=== PATIENT | female | born 1995 | race Hispanic/Latino ===

== ENCOUNTER 2023-08-03 11:25 | Emergency (ER) | payer OTHER ==
[2023-08-03] MEDS ORDERED: Sodium Chloride 0.9% 10 ML Syringe FLUSH PRN (11:28)
[2023-08-03] MEDS ORDERED: Sodium Chloride 0.9% 2.5 ML Syringe FLUSH PRN (11:28)
[2023-08-03 11:48] LABS: BASOPHILS ABSOLUTE AUTO 0.02 K/uL (0.00-0.20); BASOPHILS PERCENT AUTO 0.4 % (0.0-1.0); EOSINOPHILS ABSOLUTE AUTO 0.08 K/uL (0.00-0.45); EOSINOPHILS PERCENT AUTO 1.5 % (0.0-6.0); HEMATOCRIT 37.1 % (37.0-47.0); HEMOGLOBIN 12.8 g/dL (12.0-16.0); LYMPHOCYTES ABSOLUTE AUTO 0.88 K/uL (1.00-4.80); MEAN CORPUSCULAR HEMOGLOBIN 30.2 pg (28.0-32.0); MEAN CORPUSCULAR HGB CONC 34.5 g/dL (32.0-36.0); MEAN CORPUSCULAR VOLUME 87.5 fL (83.0-99.0); MEAN PLATELET VOLUME 10.1 fL (9.4-12.3); MONOCYTES ABSOLUTE AUTO 0.26 K/uL (0.00-0.80); NEUTROPHILS ABSOLUTE AUTO 3.93 K/uL (1.80-7.70); NEUTROPHILS PERCENT AUTO 76.1 % (41.0-71.0); PLATELET COUNT,PLT 113 K/uL (150-400); RED BLOOD CELL COUNT 4.24 M/uL (4.10-5.30); WHITE BLOOD CELL COUNT,WBC 5.17 K/uL (3.9-11.3)
[2023-08-03] MEDS ORDERED: Sodium Chloride 0.9% 1,000 ML IV ONE ×2 (11:55→12:38)
[2023-08-03] MEDS ORDERED: Ibuprofen 600 MG Tab PO ONE (12:00)
[2023-08-03] MEDS ORDERED: Acetaminophen 500 MG Tab PO ONE (12:00)
[2023-08-03 12:14] LABS: ALBUMIN 3.9 g/dL (3.4-5.0); BILIRUBIN TOTAL 0.3 mg/dL (0.2-1.0); CALCIUM 8.3 mg/dL (8.5-10.1); CARBON DIOXIDE,CO2 24.2 mmol/L (21.0-32.0); CREATININE 0.6 mg/dL (0.6-1.0); EST CRCL DRUG DOSING (CG) 126.73 mL/min; POTASSIUM,K 3.6 mmol/L (3.5-5.1)
[2023-08-03 12:24] LABS: INR 1.02 (0.86-1.11)
[2023-08-03 12:51] LABS: CORONAVIRUS COVID-19 NAA NEGATIVE (NEGATIVE); INFLUENZA A NAA NEGATIVE (NEGATIVE); INFLUENZA B NAA POSITIVE (NEGATIVE); RESPIRATORY SYNCYTIAL VIR NAA NEGATIVE (NEGATIVE)
[2023-08-03] MEDS ORDERED: Iopamidol 755 MG/ML 500 ML Multipack Bottle IVPUSH ONE (17:46)
== END 2023-08-03 16:31 | disposition home or self-care (01) ==
LOC: MW.ED 11:25
DX: J11.1 Influenza due to unidentified influenza virus with other respiratory manifestations (principal); Z20.822 Contact with and (suspected) exposure to COVID-19
CPT/HCPCS: 0241U; 36415; 71045; 71275; 80053; 83690; 84484; 85025; 85379; 85610; 87651; 93005; 96360; 96361; 99285; A9270; J3490; J7030; Q9967

== ENCOUNTER 2024-02-13 07:00 | Day surgery (SDC) | payer SELFPAY ==
[2024-02-13 07:39] LABS: BASOPHILS ABSOLUTE AUTO 0.06 K/uL (0.00-0.20); BASOPHILS PERCENT AUTO 0.7 % (0.0-1.0); EOSINOPHILS ABSOLUTE AUTO 0.12 K/uL (0.00-0.45); EOSINOPHILS PERCENT AUTO 1.4 % (0.0-6.0); HEMATOCRIT 30.9 % (37.0-47.0); HEMOGLOBIN 10.7 g/dL (12.0-16.0); IMMATURE GRAN ABSOLUTE AUTO 0.03 K/uL (0.00-0.05); IMMATURE GRAN PERCENT AUTO 0.4 % (0.0-0.4); LYMPHOCYTES ABSOLUTE AUTO 1.88 K/uL (1.00-4.80); LYMPHOCYTES PERCENT AUTO 22.2 % (24.0-44.0); MEAN CORPUSCULAR HEMOGLOBIN 30.6 pg (28.0-32.0); MEAN CORPUSCULAR HGB CONC 34.6 g/dL (32.0-36.0); MEAN CORPUSCULAR VOLUME 88.3 fL (83.0-99.0); MEAN PLATELET VOLUME 9.7 fL (9.4-12.3); MONOCYTES ABSOLUTE AUTO 0.47 K/uL (0.00-0.80); MONOCYTES PERCENT AUTO 5.6 % (0.0-8.0); NEUTROPHILS PERCENT AUTO 69.7 % (41.0-71.0); PLATELET COUNT,PLT 138 K/uL (150-400); WHITE BLOOD CELL COUNT,WBC 8.46 K/uL (3.9-11.3)
[2024-02-13 07:56] LABS: INR 1.08 (0.86-1.11)
[2024-02-13 08:00] LABS: ALBUMIN 3.3 g/dL (3.4-5.0); BILIRUBIN TOTAL 0.3 mg/dL (0.2-1.0); CALCIUM 8.3 mg/dL (8.5-10.1); CARBON DIOXIDE,CO2 23.8 mmol/L (21.0-32.0); CREATININE 0.7 mg/dL (0.6-1.0); EST CRCL DRUG DOSING (CG) 103.32 mL/min; POTASSIUM,K 3.1 mmol/L (3.5-5.1); PROTEIN TOTAL,TP 6.6 g/dL (6.4-8.2)
[2024-02-13] MEDS: Sodium Chloride 0.9% 1,000 ML IV ONE (08:31)
[2024-02-13] MEDS: Sodium Chloride 0.9% 2.5 ML Syringe FLUSH PRN (08:32)
[2024-02-13] MEDS: Sodium Chloride 0.9% 1,000 ML IV SCH (08:32)
[2024-02-13] MEDS: Sodium Chloride 0.9% 10 ML Syringe FLUSH PRN (08:32)
[2024-02-13 09:16] LABS: BASOPHILS ABSOLUTE AUTO 0.04 K/uL (0.00-0.20); BASOPHILS PERCENT AUTO 0.5 % (0.0-1.0); EOSINOPHILS ABSOLUTE AUTO 0.06 K/uL (0.00-0.45); EOSINOPHILS PERCENT AUTO 0.7 % (0.0-6.0); HEMATOCRIT 22.8 % (37.0-47.0); IMMATURE GRAN ABSOLUTE AUTO 0.04 K/uL (0.00-0.05); IMMATURE GRAN PERCENT AUTO 0.5 % (0.0-0.4); LYMPHOCYTES ABSOLUTE AUTO 1.87 K/uL (1.00-4.80); LYMPHOCYTES PERCENT AUTO 21.4 % (24.0-44.0); MEAN CORPUSCULAR HEMOGLOBIN 31.1 pg (28.0-32.0); MEAN CORPUSCULAR HGB CONC 35.1 g/dL (32.0-36.0); MEAN CORPUSCULAR VOLUME 88.7 fL (83.0-99.0); MEAN PLATELET VOLUME 9.9 fL (9.4-12.3); MONOCYTES ABSOLUTE AUTO 0.44 K/uL (0.00-0.80); NEUTROPHILS ABSOLUTE AUTO 6.28 K/uL (1.80-7.70); NEUTROPHILS PERCENT AUTO 71.9 % (41.0-71.0); PLATELET COUNT,PLT 126 K/uL (150-400); RED BLOOD CELL COUNT 2.57 M/uL (4.10-5.30); WHITE BLOOD CELL COUNT,WBC 8.73 K/uL (3.9-11.3)
[2024-02-13] MEDS ORDERED: Calcium Chloride 10% 1 GM/10 ML Syringe ONE (09:56)
[2024-02-13] MEDS ORDERED: fentaNYL 250 MCG/5 ML SDV ONE (10:16)
[2024-02-13] MEDS ORDERED: Dexamethasone 4 MG/ML 5 ML MDV ONE (10:19)
[2024-02-13] MEDS ORDERED: Ondansetron 4 MG/2 ML SDV ONE (10:19)
[2024-02-13] MEDS ORDERED: Rocuronium Bromide 50 MG/5 ML Syringe ONE (10:21)
[2024-02-13] MEDS ORDERED: propofoL 50 ML ONE (10:21)
[2024-02-13] MEDS ORDERED: Phenylephrine HCl In 0.9% NaCl 1 MG/10 ML Syringe ONE ×2 (10:21→10:38)
[2024-02-13] MEDS ORDERED: Methylergonovine 0.2 MG/1 ML Amp ONE (10:27)
[2024-02-13] MEDS ORDERED: Sugammadex Sodium 200 MG/2 ML VIAL IV ONE (10:29)
[2024-02-13] MEDS ORDERED: Glycopyrrolate 0.2 MG/ML SDV ONE (10:30)
[2024-02-13] MEDS ORDERED: ePHEDrine 50 MG/ML SDV ONE (10:30)
[2024-02-13] MEDS ORDERED: Azithromycin 500 MG in Sodium Chloride 0.9% 250 ML IV ONE (10:30)
[2024-02-13] MEDS ORDERED: Phenylephrine 1% 10 MG/ML SDV ONE (10:38)
[2024-02-13] MEDS ORDERED: Racepinephrine 2.25% 0.5 ML Neb Soln NEB ONE (10:45)
[2024-02-13] MEDS ORDERED: Sodium Chloride 0.9% Inhalation Soln 3 ML Neb INH PRN (10:45)
[2024-02-13 11:02] LABS: HEMATOCRIT 29.3 % (37.0-47.0); HEMOGLOBIN 9.9 g/dL (12.0-16.0); MEAN CORPUSCULAR HEMOGLOBIN 30.3 pg (28.0-32.0); MEAN CORPUSCULAR HGB CONC 33.8 g/dL (32.0-36.0); MEAN CORPUSCULAR VOLUME 89.6 fL (83.0-99.0); MEAN PLATELET VOLUME 9.7 fL (9.4-12.3); PLATELET COUNT,PLT 98 K/uL (150-400); RED BLOOD CELL COUNT 3.27 M/uL (4.10-5.30); WHITE BLOOD CELL COUNT,WBC 6.96 K/uL (3.9-11.3)
[2024-02-13 11:21] LABS: PTT,PARTIAL THROMBOPLSTIN TIME 29.9 SEC (23.9-30.7)
[2024-02-13 13:11] LABS: INR 1.13 (0.86-1.11); PTT,PARTIAL THROMBOPLSTIN TIME 27.1 SEC (23.9-30.7)
== END 2024-02-13 14:00 | disposition home or self-care (01) ==
LOC: MW.ED 07:00 → MW.SDS 10:25
PROVIDERS: ATTEND Obstetrics & Gynecology
DX: O03.1 Delayed or excessive hemorrhage following incomplete spontaneous abortion (principal); O03.31 Shock following incomplete spontaneous abortion
CPT/HCPCS: 36415; 36430; 59812; 76830; 80053; 84702; 84703; 85025; 85027; 85384; 85610; 85730; 86850; 86900; 86901; 86920; J0131; J1100; J2210; J2371; J2405; J2704; J3010; J3490; J7030; P9016; P9017; 96360; 99283; 99285-25